=== PATIENT | female | born 1990 | race African-American/Black ===

== ENCOUNTER 2023-05-01 09:23 | Emergency (ER) | payer MEDICAID ==
[~2023-05-01] VITALS: Ht 172.7 cm; Wt 70.0 kg
[2023-05-01 09:26] VITALS: O2SAT 100
[2023-05-01 12:00] VITALS: BP 110/70; PULSE 89; RESP 16; TEMP 96.3
== END 2023-05-01 12:10 | disposition home or self-care (01) ==
LOC: ER 09:23
DX: T42.4X1A Poisoning by benzodiazepines, accidental (unintentional), initial encounter (principal); Y92.9 Unspecified place or not applicable
CPT/HCPCS: 99283